=== PATIENT | female | born 1965 | race Caucasian/White ===

== ENCOUNTER → 2023-06-09 12:43 | Outpatient (REF) | payer OTHER, SELFPAY | LOC: HWRAD 12:43 | PROVIDERS: ATTENDING PHYSICIAN Nurse Practitioner; FAMILY PHYSICIAN Family Medicine | DX: N81.12 Cystocele, lateral (principal) | CPT/HCPCS: 76770; 76856 ==

== ENCOUNTER 2023-09-20 17:46 | Emergency (ER) | payer OTHER, SELFPAY ==
[2023-09-20 17:48] VITALS: BP 168/94
--- NOTE | 2023-09-20 18:03 | ED.GENMED ---
History of Present Illness
General
Chief Complaint: Urinary Symptoms
Source: patient
Exam Limitations: none
Time Seen by Provider: 09/20/23 17:53
Travel History
Have you had any contact with someone who has COVID-19?: No
Do you have any symptoms of coronavirus? Fever > 100 degrees, chills, cough, shortness of breath, sore throat, loss of taste or smell, muscle aches, or headache?: No
History of Present Illness
History of Present Illness:
This is a 58 year old female that comes in with c/o difficulty voiding. States that she had surgery on for a cystoplasty with sling and rectocele repair. Patient was unable to urinate after surgery so had a catheter until Friday when it was
removed. States that she urinated after the catheter was taken out and she went home. Since that time she has only been able to urinate a little and she has a UTI as she did 2 home test. States that she was place on Nitrofurantoin. States that she
also use an Enema today as she was constipated and has moved her bowel severe times. States that she has abd pain. Denies any fever, shaking chills, chest pain, SOB, nausea, vomiting, diarrhea, headache, dizziness, urinary burning.
Past History
Past History
ED Past Medical History: None; Negative Asthma, HTN, Hypercholesterolemia or NIDDM
ED Past Surgical History: Urological (Cystoplasty with sling and rectocele repair)
Social History
Tobacco: Non-smoker
Alcohol: None
Personal:
Living: with family
Employment: Employed
Family History
Family History: Other (Noncontributory)
Review of Systems
Review of Systems
All Other Systems: ROS reviewed and negative except as documented in HPI and ROS
Constitutional: Reports no symptoms; Denies fever or chills
EENT: Reports no symptoms
Respiratory: Reports no symptoms; Denies cough or trouble breathing
Cardiac: Reports no symptoms; Denies chest pain
ABD/GI: Reports abdominal pain; Denies nausea, vomiting or diarrhea
: Reports difficulty voiding; Denies dysuria, frequency or urgency
Musculoskeletal: Reports no symptoms
Skin: Reports no symptoms
Neurological: Reports no symptoms; Denies dizzy or headache
Psychiatric: Reports no symptoms
Phy Exam
General Physical Exam
General Presentation: mild distress
General age: appears stated age
General Skin: warm and dry
General Habitus: normal
General Mental: alert
General Hydration: appears well hydrated
ENT Exam
ENT Exam: TM's normal, pharynx normal and neck supple
Eye Exam
Eye Exam: EOMI
Cardiovascular Exam
Cardiovascular Exam: regular rate/rhythm, no edema, no murmur and normal peripheral pulses
Pulmonary Exam
Pulmonary Exam: lungs clear, no respiratory distress, no rales, chest non tender, no crackles, no rhonchi, no wheezing and no cough
Gastrointestinal Exam
Gastrointestinal Exam: normal bowel sounds, soft, no pulsatile mass, non distended and other (Bladder distention 3 fingers below naval)
Musculoskeletal Exam
Musculoskeletal Exam: full ROM and no edema
Skin Exam
Skin Exam: normal color, warm/dry, no rash and no petechia
Psychiatric Exam
Psychiatric Exam: normal mood/affect
Course
Orders/Labs/Results
Orders:
Orders
09/20/23 17:51
Urinalysis Reflex To Culture Urgent
Date Specimen was Collected: 09/20/23
Time Specimen was Collected: 17:49
Urine Microscopic Reflex Cult Urgent
Urine Culture Urgent
DO Source: U
Specimen Description:
Date Specimen was Collected: 09/20/23
Time Specimen was Collected: 17:49
09/20/23 18:02
Bladder Scan- Treatment ONCE
0.9% Sodium Chloride 1000 ml [Nss] 1,000 ml IV BOLUS
Ketorolac [Toradol] 30 mg IV NOW STA
09/20/23 18:06
Vidal Placement- Treatment ONCE
Reason for insertion: Acute Retention
09/20/23 18:17
Complete Blood Count/With Diff Urgent
Comprehensive Metabolic Panel Urgent
Lactate Level [Lactic Acid] Urgent
Abnormal Lab Results
09/20/23 09/20/23
17:51 18:17
RBC 3.74 L 10^6/uL
(4.20-5.40)
Hgb 11.1 L g/dL
(12.0-16.0)
Hct 33.1 L %
(37.0-47.0)
Absolute Lymphs (auto) 5.0 H 10^3/uL
(1.2-3.4)
Neutrophils % 40.7 L %
(42.2-75.2)
BUN 18 H mg/dl
(7-17)
AST 59 H U/L
(14-36)
ALT 51 H U/L
(0-35)
Ur Occult Blood Reflex 3+ A
(Negative)
Urine Nitrite (Reflex) Positive A
(Negative)
Urine Bilirubin 1+ A
(Negative)
Urine Urobilinogen 2+ A
(Neg - 1+)
Leukocyte Esterase Rfl 1+ A
(Negative)
Urine RBC 40-50 A /HPF
(0-2)
Urine Bacteria (Reflex) Few A
(Negative)
09/20/23 18:17
09/20/23 18:17
H/H slightly low. Slight dehydration. AST/ALT elevation. Urine questionable for infection ( patient on Nitrofurantoin.) lactic acid normal at 0.7
Vital Signs
Initial and Last Documented VS:
Initial Vital Signs
Temp Pulse Resp BP Pulse Ox
98.2 F 89 18 168/94 99
09/20/23 17:48 09/20/23 17:48 09/20/23 17:48 09/20/23 17:48 09/20/23 17:48
Last Documented Vital Signs
Temp Pulse Resp BP Pulse Ox
98.2 F 89 18 139/80 97
09/20/23 17:48 09/20/23 17:48 09/20/23 17:48 09/20/23 18:29 09/20/23 18:30
MDM/Problems Addressed
Differential Diagnosis Includes:
Urinary retention, UTI
MDM/Problems Addressed:
This is a 58 year old female that comes in with c/o difficulty voiding and she has a UTI. Patient had a Cystoplasty with sling and rectocele repair on . States that she had a vidal catheter that was removed on Friday. States that she
urinated after the catheter was removed and then it has been decreasing since that time. Patient is also taking Nitrofurantoin
Will check labs, Urine and given Pain medication and Please vidal catheter for retention. Will give IV fluids
Back into see patient. Patient is feeling much better. Blood work shows slight Dehydration. and her urine is positive for Nitrite but the WBC are normal. Patient to continue with antibiotic that she is taking. Patient to follow up with the
Urologist. Patient to increase her water intake to 8-8oz glasses daily. Patient to return with any concerns.
Chronic conditions affecting care:
NA
Acute Exacerbation and/or Progression of Chronic Illness:
NA
*Pulse Oximetry
Patient hypoxic: no
*EKG
Interpreted by ED Provider?: NA
Rate: EKG- N/A
*Slate Cutter Interpretation
Rate: Slate Cutter- N/A
*Critical Care Note
Total Time (30-74mins, 75-104mins- exclusive of procedures): Not Applicable
ED Attending Note
-
Portions of this chart may have been created with voice recognition software.� Occasional wrong word or��sound alike� substitutions may have occurred due to the inherent limitations of voice recognition software.
Discharge Plan
Departure
Patient Disposition: Home (Routine Discharge)
Date of Disposition: 09/20/23
Time of Disposition: 19:10
Patient with high blood pressure during this ER visit?: Yes
Condition: Good
Covid-19: Not Applicable
Discharge Problem:
Acute urinary retention
Instructions: How to Care for Your Vidal Catheter, Urinary retention - Discharge instructions, BLOOD PRESSURE
Prescriptions:
No Action
hydrocortisone acetate 25 MG suppository
25 mg DC BID Qty: 30 0RF
Referrals:
UNKNOWN - PT DOES,NOT KNOW [Unknown Provider] -
Activity Restrictions/Additional Instructions:
As discussed. A catheter has been place due to urinary retention. Please increase your water intake to 8-8oz glasses daily. Please continue with your antibiotic that you are taking. Follow up with the Urologist for catheter removal and further
evaluation. Please call them on Friday. IF YOU HAVE ANY FEVER, INCREASED OR CHANGING PAIN, OR YOU HAVE ANY OTHER CONCERNS PLEASE RETURN TO THE EMERGENCY ROOM.
Interventions
Interventions:
*ED COVID-19 Vaccine History Last Done: 09/20/23 17:48
ED-Female Genitourinary Assessment Last Done: 09/20/23 18:39
Discharge Date and Time
Print Language: KINYARWANDA
[2023-09-20 18:11] LABS: Urine Albumin Negative (Neg - Trace); Urine Bilirubin 1+ (Negative); Urine Character Clear (Clear); Urine Glucose Negative (Negative); Urine Ketone Negative (Negative); Urine Leukocyte 1+ (Negative); Urine Nitrite Positive (Negative); Urine Occult Blood 3+ (Negative); Urine Urobilinogen 2+ (Neg - 1+)
[2023-09-20 18:17] LABS: Urine Color Orange
[2023-09-20] MEDS: TORADOL 30 MG IV (18:21)
[2023-09-20] MEDS: NSS 1000 IV (18:21)
[2023-09-20 18:29] VITALS: BP 139/80
[2023-09-20 18:41] LABS: % Basophils 0.6 % (0-2); % Eosinophils 2.5 % (0-6); % Immature Granulocytes 0.2 % (0-0.5); % Lymphocytes 49.8 % (20.5-51.1); % Monocytes 6.2 % (1.7-9.3); % Neutrophils 40.7 % (42.2-75.2); Absolute Basophils 0.1 10^3/uL (0-0.2); Absolute Eosinophils 0.3 10^3/uL (0-0.7); Absolute Monocytes 0.6 10^3/uL (0.1-0.6); Absolute Neutrophils 4.1 10^3/uL (1.4-6.5); Hematocrit 33.1 % (37.0-47.0); Hemoglobin 11.1 g/dL (12.0-16.0); Mean Corp Hgb Conc. 33.5 g/dL (33.0-37.0); Mean Corpuscular Hgb 29.7 pg (27.0-31.0); Mean Corpuscular Volume 88.5 fL (81.0-99.0); Mean Platelet Volume 8.9 fL (7.4-10.4); Nucleated Red Blood Cells % 0 %; Platelet Count 296 10^3/uL (130-400); Red Blood Cell Count 3.74 10^6/uL (4.20-5.40); Red Cell Dist. Width 12.8 % (11.5-14.5); White Blood Cell Count 10.1 10^3/uL (4.8-10.8)
[2023-09-20 18:41] LABS: Urine Bacteria Few (Negative); Urine Red Blood Cell 40-50 /HPF (0-2)
[2023-09-20 18:57] LABS: ALT (SGPT) 51 U/L (0-35); AST (SGOT) 59 U/L (14-36); Albumin 4.3 g/dl (3.5-5.0); Alkaline Phosphatase 75 U/L (38-126); Blood Urea Nitrogen 18 mg/dl (7-17); Calcium 9.5 mg/dl (8.4-10.2); Carbon Dioxide 23 mmol/L (22-30); Chloride 107 mmol/L (98-107); Glucose 91 mg/dl (70-99); Potassium 4.3 mmol/L (3.5-5.1); Sodium 140 mmol/L (135-145); Total Bilirubin 0.3 mg/dl (0.2-1.3); eGFR > 60.00
[2023-09-20 18:59] LABS: Lactic Acid 0.7 mmol/L (0.7-2.0)
== END 2023-09-20 19:31 | disposition home or self-care (01) ==
LOC: EMR 17:46
PROVIDERS: Clinical Nurse Specialist Family Health; Emergency Medicine; EMERGENCY PHYSICIAN Emergency Medicine; FAMILY PHYSICIAN Physician Assistant Medical
DX: R33.9 Retention of urine, unspecified (principal); R10.9 Unspecified abdominal pain; N39.0 Urinary tract infection, site not specified; E86.0 Dehydration; R03.0 Elevated blood-pressure reading, without diagnosis of hypertension; Z98.890 Other specified postprocedural states
CPT/HCPCS: 99284; 96374; 96361; 51702; 51798; 80053; 81003; 81015; 83605; 85025; 87086

== ENCOUNTER 2023-09-26 02:15 | Emergency (ER) | payer OTHER, SELFPAY ==
[2023-09-26 02:25] VITALS: BP 158/87
--- NOTE | 2023-09-26 02:55 | ED.GENMED ---
History of Present Illness
<JANINE Tanner - Last Filed: 09/26/23 04:39>
General
Chief Complaint: Urinary Symptoms
Source: patient and records
Exam Limitations: none
Time Seen by Provider: 09/26/23 02:47
Travel History
Have you had any contact with someone who has COVID-19?: No
Do you have any symptoms of coronavirus? Fever > 100 degrees, chills, cough, shortness of breath, sore throat, loss of taste or smell, muscle aches, or headache?: No
History of Present Illness
History of Present Illness:
58 year old female s/p cystoplasty with sling and rectocele repair on 09/18/23 who presents for urinary retention. Pt has a hx of urinary retention s/p bladder surgery last week. She had a vidal catheter placed after the surgery that was removed the
following day. Pt also complains of dysuria. States she was placed on Macrobid by urologist. She was switched to cipro and began treatment today. Pt was seen here on 09/20/23 for urinary retention. She had vidal catheter placed. She represents with
similar symptoms. States she is voiding but has dribbling urine. Pt also reports chills and lower abdominal pain and pressure. Denies hematuria, nausea, vomiting, flank pain, fevers.
Past History
<JANINE Tanner - Last Filed: 09/26/23 04:39>
Past History
ED Past Medical History: None; Negative Asthma, HTN, Hypercholesterolemia or NIDDM
ED Past Surgical History: Urological (Cystoplasty with sling and rectocele repair)
Social History
Tobacco: Non-smoker
Alcohol: None
Personal:
Living: with family
Employment: Employed
Family History
Family History: Other (Noncontributory)
Review of Systems
<JANINE Tanner - Last Filed: 09/26/23 04:39>
Review of Systems
Allergies reviewed?: Yes
All Other Systems: ROS reviewed and negative except as documented in HPI and ROS
Constitutional: Reports chills
EENT: Reports no symptoms
Respiratory: Reports no symptoms
Cardiac: Reports no symptoms
ABD/GI: Reports abdominal pain
: Reports difficulty voiding
Musculoskeletal: Reports no symptoms
Skin: Reports no symptoms
Neurological: Reports no symptoms
Endocrine: Reports no symptoms
Hematologic/Lymphatic: Reports no symptoms
Psychiatric: Reports no symptoms
Phy Exam
<JANINE Tanner - Last Filed: 09/26/23 04:39>
General Physical Exam
General Presentation: no apparent distress
General age: appears stated age
General Skin: warm and dry
General Habitus: normal
General Mental: alert
General Hydration: appears well hydrated
Cardiovascular Exam
Cardiovascular Exam: regular rate/rhythm, no edema, no gallop, no murmur and normal peripheral pulses
Pulmonary Exam
Pulmonary Exam: lungs clear, no respiratory distress, no rales, no crackles, no rhonchi, no wheezing and no cough
Gastrointestinal Exam
Gastrointestinal Exam: other (abdomen mildly distended with mild tenderness to palpation to bilateral lower quadrants)
Neurological Exam
Neurological Exam: alert and oriented x3
Skin Exam
Skin Exam: normal color and warm/dry
Psychiatric Exam
Psychiatric Exam: normal mood/affect
Course
<JANINE Tanner - Last Filed: 09/26/23 04:39>
Orders/Labs/Results
Orders:
Orders
09/26/23 03:21
Vidal Placement- Treatment ONCE
Reason for insertion: Acute Retention
Catheter- Indwelling As Directed
Reason for insertion: Acute Retention
Discontinue Date/Time: 09/29/23 0600
09/26/23 03:24
Urinalysis Reflex To Culture Urgent
Date Specimen was Collected: 09/26/23
Time Specimen was Collected: 03:21
Urine Microscopic Reflex Cult Urgent
Urine Culture Urgent
DO Source: U
Specimen Description:
Date Specimen was Collected: 09/26/23
Time Specimen was Collected: 03:21
Abnormal Lab Results
09/26/23
03:24
Ur Occult Blood Reflex Trace A
(Negative)
Urine Nitrite (Reflex) Positive A
(Negative)
Urine Bilirubin 2+ A
(Negative)
Urine Urobilinogen 2+ A
(Neg - 1+)
Urine RBC 3-6 A /HPF
(0-2)
Urine Bacteria (Reflex) Few A
(Negative)
Vital Signs
Initial and Last Documented VS:
Initial Vital Signs
Temp Pulse Pulse Ox
98.0 F 81 98
09/26/23 02:17 09/26/23 02:17 09/26/23 02:17
Last Documented Vital Signs
Temp Pulse BP Pulse Ox
97.6 F 81 143/72 98
09/26/23 03:35 09/26/23 02:17 09/26/23 04:00 09/26/23 02:17
<Ayad Cowart, DO - Last Filed: 09/26/23 03:50>
Orders/Labs/Results
Orders:
Orders
09/26/23 03:21
Vidal Placement- Treatment ONCE
Reason for insertion: Acute Retention
Catheter- Indwelling As Directed
Reason for insertion: Acute Retention
Discontinue Date/Time: 09/29/23 0600
09/26/23 03:24
Urinalysis Reflex To Culture Urgent
Date Specimen was Collected: 09/26/23
Time Specimen was Collected: 03:21
Urine Microscopic Reflex Cult Urgent
Urine Culture Urgent
DO Source: U
Specimen Description:
Date Specimen was Collected: 09/26/23
Time Specimen was Collected: 03:21
Abnormal Lab Results
09/26/23
03:24
Ur Occult Blood Reflex Trace A
(Negative)
Urine Nitrite (Reflex) Positive A
(Negative)
Urine Bilirubin 2+ A
(Negative)
Urine Urobilinogen 2+ A
(Neg - 1+)
Urine RBC 3-6 A /HPF
(0-2)
Urine Bacteria (Reflex) Few A
(Negative)
Vital Signs
Initial and Last Documented VS:
Initial Vital Signs
Temp Pulse Pulse Ox
98.0 F 81 98
09/26/23 02:17 09/26/23 02:17 09/26/23 02:17
Last Documented Vital Signs
Temp Pulse BP Pulse Ox
97.6 F 81 143/72 98
09/26/23 03:35 09/26/23 02:17 09/26/23 04:00 09/26/23 02:17
<JANINE Tanner - Last Filed: 09/26/23 04:39>
MDM/Problems Addressed
Differential Diagnosis Includes:
urinary retention, UTI
MDM/Problems Addressed:
58 year old female who presents with dysuria, lower abdominal pain, and urinary retention that began 1 week ago.
<JANINE Tanner - Last Filed: 09/26/23 04:39>
*Critical Care Note
Total Time (30-74mins, 75-104mins- exclusive of procedures): Not Applicable
ED Attending Note
<JANINE Tanner - Last Filed: 09/26/23 04:39>
-
Portions of this chart may have been created with voice recognition software.� Occasional wrong word or��sound alike� substitutions may have occurred due to the inherent limitations of voice recognition software.
<Ayad Cowart, - Last Filed: 09/26/23 03:50>
ED Attending Note
Patient seen and examined by attending physician: Yes
I performed the substantive portion of visit, reviewed & personally made and approve the management plan that is documented in note by myself or BRIA.: Yes
ED Attending Note:
Pleasant 58-year-old female that has had urinary retention. She has had a UTI since 09/20/2023, and has been on Cipro. She just took her first dose this evening. She had a bladder sling on 09/17. She has not been able to urinate this evening. She
was taught to self cath but she was unable to do so. Bladder scan showed 800 cc in the bladder. Patient was seen in conjunction with the PA student. I have reviewed and agree with the history and treatment plan presented. On my independent
physical exam, patient is awake, alert, and oriented x3, no acute distress after Vidal catheter in place. No respiratory distress. Skin is warm and dry. Mentate appropriately. Moves all 4 extremities. Urinalysis sent for culture. She will
maintain Cipro.
Discharge Plan
Departure
Patient Disposition: Home (Routine Discharge)
Date of Disposition: 09/26/23
Time of Disposition: 03:48
Patient with high blood pressure during this ER visit?: Yes
Condition: Good
Discharge Problem:
Acute urinary retention, Urinary tract infection
Instructions: BLOOD PRESSURE
Prescriptions:
New
phenazopyridine [Pyridium] 100 mg tablet
100 mg PO TID PRN (Reason: Pain) Qty: 14 0RF
No Action
hydrocortisone acetate 25 MG suppository
25 mg IN BID Qty: 30 0RF
Referrals:
Tamika Olvera PA [Family Provider] -
Activity Restrictions/Additional Instructions:
It was a pleasure meeting you and taking part in your care. We hope for your continued healing and wellness.
Please read discharge instructions in their entirety. However, they are for general education and may not describe your exact diagnosis at discharge. Information on your ER visit and medical conditions were discussed with you along with appropriate
follow up information...
If indicated, please take your medications as instructed and indicated on discharge paperwork.
Please schedule a follow up appointment as directed. Call to schedule an appointment
Please return to the emergency department with ANY change in, persisting, or worsening of symptoms. If any of your symptoms do not improve, or persist, or become more severe within 6-12 hours, please return to the emergency department for further
care.
Please return to the emergency department if you develop a headache, neck pain/stiffness, fever greater than 100.4F, chest pain, shortness of breath, persistent nausea, vomiting, slurred speech, difficulty walking, numbness/tingling, weakness, signs
of infection or any other symptoms that are worrisome to you.
If you have any questions or concerns please do not hesitate to call the Hospital at or E-mail me directly at [email or web address]
Interventions
Interventions:
*Risk Screen - Suicide Last Done: 09/26/23 03:00
*General Assessment Last Done: 09/26/23 02:17
*Neglect/Abuse Screening Last Done: 09/26/23 02:17
ED- Fall Risk Assessment Last Done: 09/26/23 02:17
*ED COVID-19 Vaccine History Last Done: 09/26/23 02:17
*Nursing Disposition Last Done: 09/26/23 04:00
ED-Female Genitourinary Assessment Last Done: 09/26/23 03:00
Discharge Date and Time
Discharge Date/Time: 09/26/23 04:00
Print Language: [place]
[2023-09-26 03:37] LABS: Urine Albumin Negative (Neg - Trace); Urine Bilirubin 2+ (Negative); Urine Character Clear (Clear); Urine Glucose Negative (Negative); Urine Ketone Negative (Negative); Urine Leukocyte Negative (Negative); Urine Nitrite Positive (Negative); Urine Occult Blood Trace (Negative); Urine Urobilinogen 2+ (Neg - 1+)
[2023-09-26 03:39] LABS: Urine Color Orange
[2023-09-26 04:00] VITALS: BP 143/72
[2023-09-26 04:07] LABS: Urine Bacteria Few (Negative); Urine Squamous Cell 0-2 /LPF (Few); Urine White Cell 0-2 /HPF (0-5)
== END 2023-09-26 04:00 | disposition home or self-care (01) ==
LOC: EMR 02:15
PROVIDERS: EMERGENCY PHYSICIAN Student in an Organized Health Care Education/Training Program; FAMILY PHYSICIAN Physician Assistant Medical
DX: R33.9 Retention of urine, unspecified (principal); N39.0 Urinary tract infection, site not specified; Z87.440 Personal history of urinary (tract) infections
CPT/HCPCS: 99282; 81003; 81015; 87086

== ENCOUNTER 2023-09-30 06:11 | Day surgery (SDC) | payer OTHER, SELFPAY ==
[2023-09-30] VITALS (10 sets, daily range): BP systolic 116–158; BP diastolic 63–85; BMI 22.9
[2023-09-30] MEDS: Pyridium 200 MG PO (06:05)
[2023-09-30] MEDS: NORMOSOL-R 1000 IV (06:27)
--- NOTE | 2023-09-30 08:08 | OR.RPT ---
Operative Report
Operative Report
PREOPERATIVE DIAGNOSIS:
1. Stress urinary incontinence
2. Urinary Retention
POSTOPERATIVE DIAGNOSIS:
1. Stress urinary incontinence
2. Urinary retention
PROCEDURE:
1. Removal and revision of retropubic midurethral sling
2. Single Incision Sling
3. Cystoscopy
ASSISTANTS:� None
ANESTHESIA:� General anesthesia with LMA
ESTIMATED BLOOD LOSS:� 5cc
SPECIMENS:� None
COMPLICATIONS:� None
FINDINGS:� Intraoperative cystoscopy revealed normal bladder mucosa throughout.� No evidence of cystotomy, sutures, lacerations, lesions, or mesh.� There was normal efflux of urine from bilateral ureteral orifices.� Normal urethra.
INDICTATIONS:� The patient is 2 weeks postop from a retropubic sling and has had urinary retention since surgery. Her preoperative urodynamic testing demonstrated stress incontinence.� Risks, benefits, indications and alternatives of the procedure
were reviewed with the patient.� Risks reviewed include bleeding, infection, damage to bladder, ureter urethra, bowel, blood vessels, nerves, mesh complications, post-operative urinary retention and post-operative urinary incontinence.� All
questions answered and informed consent obtained.
PROCEDURE:� On the day of surgery the patient was identified in the preoperative waiting area.� Consents were again reviewed.� The patient was taken to the operating room.� Pneumatic compression devices were placed on the lower extremities
bilaterally for DVT prophylaxis.�Ancef 2 grams was administered for antibiotic prophylaxis.� General anesthesia was administered without difficulty.� The patient was positioned into the dorsal lithotomy position and pressed and draped in the usual
sterile fashion.� Vidal catheter was removed and replaced to drain it.
The midurethral retropubic sling was removed as follows: Lone star retractor was placed for adequate visualization. Next 1% lidocaine with epinephrine was injected into the vaginal mucosal at the level of the sling. The metzenbaum scissors were used
to open the prior wound closure. The sling was isolated with hemostats and incised in the midline. The mesh sling was then removed as high as possible under the pubic symphysis. The vaginal mucosa was trimmed for a
fresh edge of closure tissue.
The single incison midurethral sling was inserted as follows: Alices were placed on the anterior vaginal mucosa at the level of the bladder neck and 1 cm from the urethral meatus, respectively.�The vaginal mucosa was dissected free from the
underlying pubocervical fascia and urethra using Metzenbaum scissors to the level of the inferior pubic rami bilaterally.� The Solyx sling trocar was brought onto the field.� The trocar was placed in the left vaginal dissection, below the inferior
pubic rami and then passed behind and around the pubic rami into the obturator muscle. Trochar was deployed.� This was repeated on the right side.� Adequate tension was confirmed. The vidal catheter was then removed and the cystoscopy was performed
with the above noted findings.� The bladder was drained and the vidal catheter was replaced.�The vaginal incision was closed with 2-0 Vicryl in a running continuous fashion.� Vaginal packing was not placed.
Sponge, lap and needle counts were correct x 2.� I, Dr. Garza was scrubbed and present throughout the procedure.� The patient was awakened and sent to the PACU in stable condition.�
[2023-09-30] MEDS: DILAUDID 0.25 MG IV ×2 (08:12→08:24)
[2023-09-30] MEDS: MOTRIN 600 MG PO (09:49)
== END 2023-09-30 10:07 | disposition home or self-care (01) ==
LOC: SDS 06:11
PROVIDERS: ATTENDING PHYSICIAN Obstetrics & Gynecology
DX: N39.3 Stress incontinence (female) (male) (principal); R33.8 Other retention of urine
CPT/HCPCS: 57288; C1771

== ENCOUNTER → 2024-01-29 14:36 | Outpatient (REF) | payer OTHER, SELFPAY | LOC: WDC 14:36 | PROVIDERS: ATTENDING PHYSICIAN Obstetrics & Gynecology; FAMILY PHYSICIAN Student in an Organized Health Care Education/Training Program | DX: Z12.31 Encounter for screening mammogram for malignant neoplasm of breast (principal) | CPT/HCPCS: 77063; 77067 ==

== ENCOUNTER → 2024-02-03 07:48 | Outpatient (REF) | payer OTHER, SELFPAY | LOC: RAD 07:48 | PROVIDERS: ATTENDING PHYSICIAN Student in an Organized Health Care Education/Training Program | DX: M85.80 Other specified disorders of bone density and structure, unspecified site (principal) | CPT/HCPCS: 77080 ==

== ENCOUNTER → 2025-02-01 12:49 | Outpatient (REF) | payer OTHER, SELFPAY | LOC: HWWDC 12:49 | PROVIDERS: ATTENDING PHYSICIAN Obstetrics & Gynecology; FAMILY PHYSICIAN Physician Assistant Medical | DX: Z12.31 Encounter for screening mammogram for malignant neoplasm of breast (principal) | CPT/HCPCS: 77063; 77067 ==